=== PATIENT | female | born 1980 | race Caucasian/White ===

== ENCOUNTER 2023-01-16 13:55 | Observation (INO) | payer OTHER ==
[~2023-01-16] VITALS: Ht 167.6 cm; Wt 82.0 kg
[2023-01-16] VITALS (22 sets, daily range): BP systolic 88–162; BP diastolic 55–86
[~2023-01-16 13:55] MED LIST: AMOXICILLIN500 MG PO; IBUPROFEN600 MG PO; KEFLEX500 MG PO; LYRICA50 MG PO; MORPHINE SUL15 MG PO; ONDANSETRON4 MG PO; PERCOCET 10/31 COMBO PO; ROCEPHIN 1 GM1 GM IM
--- NOTE | 2023-01-16 14:44 | NUR ---
UNABLE TO OBTAIN IV ACCESS, PATIENT HAS SEVERE SCAR TISSUE FROM PREVIOUS DRUG USE. DR. MORENO AT THE BEDSIDE INSERTING A CENTRAL LINE..
[2023-01-16 15:23] LABS: BASO% 0.8 % (0-3); EOS% 2.1 % (0-8); LYMPH% 34.2 % (15-41); MEAN CORPUSCULAR HGB 18.5 pG CALC (26.0-32.0); MEAN CORPUSCULAR HGB CONC 29.1 g/dL CAL (32.0-36.0); MONO% 8.2 % (2-13); NEUT# 2.65 thou/uL (2.00-7.15); NEUT% 54.7 % (42-76); RED BLOOD COUNT 3.94 mill/uL (4.20-5.60); RED CELL DISTRI WIDTH 15.4 % (11.5-15.5)
[2023-01-16 15:28] LABS: HEMATOCRIT 25.1 % (37.0-47.0); HEMOGLOBIN 7.3 g/dl (12.0-16.0); MEAN CELL VOLUME 63.7 fL CALC (80.0-100.0)
--- NOTE | 2023-01-16 15:35 | NUR ---
CENTRAL LINE IN PLACE IN THE RIGHT JUGULAR VEIN. PATIENT TAKEN TO CT AT THIS TIME.
[2023-01-16 15:41] LABS: ALBUMIN 3.9 g/dL (3.2-5.0); ALKALINE PHOSPHATASE 73 u/l (38-126); ANION GAP 13 (6-22 (CALC)); BILIRUBIN, TOTAL 0.4 mg/dL (0.02-1.3); BUN 12 mg/dL (7-17); BUN/CREATININE RATIO 17 (12-20 (CALC)); CARBON DIOXIDE 24 mmol/l (22-30); CHLORIDE 107 mmol/l (95-108); CREATININE 0.7 mg/dL (0.5-1.0); GFR FOR AFR.AMER. > 60 ML/MIN (>=60 (CALC)); GFR OTHER RACES > 60 ML/MIN (>=60 (CALC)); POTASSIUM 3.7 mmol/l (3.5-5.1); SGOT/AST 26 u/l (14-36); SODIUM 140 mmol/l (137-146); TOTAL PROTEIN 7.1 g/dL (6.3-8.2)
--- NOTE | 2023-01-16 21:20 | NUR ---
2114 VS FOR BLOOD TRANSFUSION CHARTED AT 2159 IN TAR, UNABLE TO CHANGE TIME, AUTOMATICALLY SET FOR HOURLY VITALS IN TAR.
--- NOTE | 2023-01-16 21:20 | NUR ---
PT WITH HOB ELEVATED, AIRWAY PATENT, RESP EVEN AND NON LABORED, SKIN P/W/D. NO COMPLAINTS VOICED.
--- NOTE | 2023-01-16 21:53 | NUR ---
attempted to call report, nurse will call back in 5 minutes. pt resting quietly in bed, no acute distress noted.
--- NOTE | 2023-01-16 22:00 | NUR ---
REPORT CALLED TO FLOOR, PT TRANSPORTED TO [facility] VIA STRETCHER IN STABLE CONDITION.
--- NOTE | 2023-01-16 23:00 | NUR ---
RECEIVED REPORT FROM NURSE RANDOLPH, PATIENT TRANSPORTED VIA BED, PATIENT AMBULATORY, PATIENT ALERT ORIENTED, DENIES DISCOMFORTS AT THSI TIME, PATIENT TRIPLE LUMEN RT EJ WITH ONGOING FIRST UNIT OF PRBC, REPORT GIVEN BY NURSE RANDOLPH, PATIENT ORIENTED TO [place] CALL LIGHT SYSTEM, ARRIVED TO FLOOR AT 2225, BREATHING UNLABORED CALL LIGHT IN REACH.
[2023-01-17] VITALS (9 sets, daily range): BP systolic 98–122; BP diastolic 52–73
--- NOTE | 2023-01-17 00:15 | NUR ---
FIRST UNIT OF BLOOD COMPLETED. PATIENT V/S OBTAINED AND RECORDED.
--- NOTE | 2023-01-17 00:52 | NUR ---
SECOND UNIT OF BLOOD STARTED AT 004
--- NOTE | 2023-01-17 02:54 | NUR ---
ONGOING 2ND UNIT OF PRBC, NO ALLERGIC REACTION NOTED, PATIENT NOT IN DISTRESS, CALL LIGHT IN REACH.
--- NOTE | 2023-01-17 03:18 | NUR ---
2ND UNIT OF BLOOD COMPLETED, NO ALLERGIC REACTION NOTED, ONGOING NS 2 125CC/HR,CALL LIGHT IN REACH.
[2023-01-17 05:09] LABS: HEMATOCRIT 29.4 % (37.0-47.0); HEMOGLOBIN 9.2 g/dl (12.0-16.0); MEAN CORPUSCULAR HGB 21.4 pG CALC (26.0-32.0); MEAN CORPUSCULAR HGB CONC 31.3 g/dL CAL (32.0-36.0); RED BLOOD COUNT 4.3 mill/uL (4.20-5.60); RED CELL DISTRI WIDTH 19.4 % (11.5-15.5)
[2023-01-17 05:16] LABS: MEAN CELL VOLUME 68.4 fL CALC (80.0-100.0)
--- NOTE | 2023-01-17 08:00 | NUR ---
PT IN BED WITH HOB UP, ALERT AND ORIENTED. PT HAS NO C/O PAIN AT THIS TIME. PT HAS IV REJ TRIPLE LUMEN CLEAN AND INTACT WITH NS 125 ML/HR INFUSING. TELE ON WITH LEADS ATTACHED. PT LUNGS CLEAR. BS HYPOACTIVE. PT AMBULATES WELL TO BATHROOM FOR ALL TOILETING NEEDS. PT HAS CALL LIGHT WITHIN REACH AND ALL SAFETY MEASURES IN PLACE AT THIS TIME.
--- NOTE | 2023-01-17 12:00 | NUR ---
PT IN BED EATING LUNCH. PT HAS NO C/O PAIN AT THIS TIME. PT HAS NO CHANGE IN STATUS. CALL LIGHT WITHIN REACH AND ALL SAFETY MEASURES IN PLACE AT THIS TIME.
[2023-01-17] MEDS ORDERED: PEPCID20 MG PO (13:07)
[2023-01-17] MEDS ORDERED: IRON325 M1 PO (13:07)
[2023-01-17] MEDS ORDERED: DOCUSATE CAL240 MG PO (13:07)
--- NOTE | 2023-01-17 16:00 | NUR ---
Discharge instructions given. Patient verbalizes understanding of same. Discharged in stable condition via Wheelchair to Home with family. All belongings sent with pt.
== END 2023-01-17 15:59 | disposition home or self-care (01) ==
LOC: ED 13:55 → ED-I 14:38 → ED 14:38 → ED-I 19:53 → ED 20:06 → MS2 20:07
PROVIDERS: Family Medicine; ADMIT Student in an Organized Health Care Education/Training Program; ATTEND Student in an Organized Health Care Education/Training Program
DX: D62 Acute posthemorrhagic anemia (principal); M79.7 Fibromyalgia; Z98.82 Breast implant status; Z98.890 Other specified postprocedural states
CPT/HCPCS: G0378; P9016; Q9967

== ENCOUNTER 2024-06-15 19:09 | Emergency (ER) | payer OTHER ==
[~2024-06-15] VITALS: Ht 167.6 cm; Wt 74.0 kg
[~2024-06-15 19:09] MED LIST changes: +DOCUSATE CAL240 MG PO; +IRON325 M1 PO; +PEPCID20 MG PO; +TRAMADOL HYDROC50 M1 PO
[2024-06-15 20:05] VITALS: BP 125/72
[2024-06-15 20:45] LABS: URINE BLOOD DIPSTICK Trace-intact (NEGATIVE); URINE GLUCOSE - DIPSTICK 100 mg/dL (NEGATIVE); URINE KETONE Trace mg/dL (NEGATIVE); URINE LEUK ESTERASE Trace (NEGATIVE); URINE PROTEIN - DIPSTICK 100 mg/dL (NEG-TRACE); URINE SPECIFIC GRAVITY >=1.030; URINE UROBILINOGEN - DIPSTICK >=8.0 E.U./dL (0.2)
[2024-06-15 20:47] LABS: URINE NITRITE - DIPSTICK Positive (Negative)
[2024-06-15 20:50] LABS: URINE COLOR Dark yellow
[2024-06-15 20:52] LABS: URINE AMORPH SEDIMENT MANY hpf (NONE-FEW)
[2024-06-15 20:55] LABS: URINE TRICHOMONAS MODERATE hpf
[2024-06-15 20:56] LABS: URINE SQUAMOUS EPITHELIAL CELL MODERATE EPI/hpf (0-FEW)
[2024-06-15 20:57] LABS: URINE BACTERIA FEW hpf
[2024-06-15] MEDS ORDERED: CEPHALEXIN MONOHYDRATE 500 MG/CAP PO ONE (21:40)
[2024-06-15] MEDS ORDERED: metroNIDAZOLE 500 MG/TAB PO ONE (21:40)
[2024-06-15] MEDS ORDERED: METRONIDAZOLE500 MG PO (21:41)
[2024-06-15] MEDS ORDERED: KEFLEX500 MG PO (21:41)
[2024-06-15 21:50] VITALS: BP 125/72
== END 2024-06-15 22:10 | disposition home or self-care (01) ==
LOC: ED 19:09
PROVIDERS: Family Medicine
DX: N39.0 Urinary tract infection, site not specified (principal); B95.61 Methicillin susceptible Staphylococcus aureus infection as the cause of diseases classified elsewhere; A59.00 Urogenital trichomoniasis, unspecified; G62.9 Polyneuropathy, unspecified

== ENCOUNTER 2024-07-14 12:46 | Emergency (ER) | payer OTHER ==
[~2024-07-14] VITALS: Ht 167.6 cm; Wt 68.0 kg
[~2024-07-14 12:46] MED LIST changes: +METRONIDAZOLE500 MG PO
[2024-07-14 13:28] VITALS: BP 129/72
[2024-07-14 13:30] VITALS: BP 117/79
[2024-07-14] MEDS ORDERED: HYDROcodone 5 MG/Acetaminophen 325 MG/COMBO PO ONE (13:30)
[2024-07-14] MEDS ORDERED: LORTAB 5/3255 MG PO (13:44)
[2024-07-14] MEDS ORDERED: CIPROFLOXACN500 MG PO (13:44)
[2024-07-14] MEDS ORDERED: BACTRIM DS1 TAB PO (13:44)
[2024-07-14 13:45] VITALS: BP 104/67
[2024-07-14 14:19] VITALS: BP 104/67
[2024-07-14] MEDS ORDERED: ZOFRAN4 MG/TAB PO (14:25)
== END 2024-07-14 14:19 | disposition home or self-care (01) ==
LOC: ED 12:46
DX: N61.0 Mastitis without abscess (principal); T85.43XD Leakage of breast prosthesis and implant, subsequent encounter; Y83.8 Other surgical procedures as the cause of abnormal reaction of the patient, or of later complication, without mention of misadventure at the time of the procedure